=== PATIENT | female | born 1970 | race Caucasian/White ===

== ENCOUNTER → 2017-10-25 | Day surgery (SDC) | payer OTHER ==
[~2017-10-25] MED LIST: ASA81 MG PO; CATAFLAN PO; CLONAZEPAM1 MG PO; GABAPENTIN800 MG PO; METFORMIN HCL500 MG PO; MOTRIN PM CAPL1 EACH PO; PRILOSEC OTC20 MG PO; RESTORIL30 M1 PO; VASOTEC5 MG PO; ZOCOR40 MG PO
== END | disposition home or self-care (01) ==
LOC: ADM 10-24 15:00 → CIR.AMB 06:13
DX: M24.531 Contracture, right wrist (principal); M24.541 Contracture, right hand